=== PATIENT | male | born 1965 | race American Indian/Alaskan Native ===

== ENCOUNTER 2019-08-21 08:15 | Emergency (ER) | payer SELFPAY ==
[2019-08-21] MEDS ORDERED: LIDOCAINE 1%/EPINEPHRINE 1:100,000 VIAL (20 ML) INFILTRATI ONE ×2 (08:36→09:13)
[2019-08-21] MEDS ORDERED: TETANUS,DIPH,PERTUSS(ACELL) VACCINE 0.5 ML SYRINGE IM ONE (08:40)
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
[2019-08-21] MEDS ORDERED: ONDANSETRON 4 MG ODT TAB PO ONE (09:02)
[2019-08-21 09:32] VITALS: BP 170/100
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
== END 2019-08-21 11:00 | disposition left against medical advice (07) ==
LOC: ED 08:15
DX: S01.21XA Laceration without foreign body of nose, initial encounter (principal); S09.90XA Unspecified injury of head, initial encounter; I10 Essential (primary) hypertension; Z79.899 Other long term (current) drug therapy; W50.0XXA Accidental hit or strike by another person, initial encounter; Y93.89 Activity, other specified; Y92.89 Other specified places as the place of occurrence of the external cause; Y99.8 Other external cause status
CPT/HCPCS: 70450; 70486; 90471; 90715; Q0162